=== PATIENT | female | born 1955 | race Two or more races ===

== ENCOUNTER → 2016-07-14 | Outpatient (CLI) | payer MEDICAID, OTHER | END | disposition home or self-care (01) | LOC: EDBD 13:05 → Rad HDHVI 13:05 | PROVIDERS: ATTEND Internal Medicine Cardiovascular Disease | DX: I51.7 Cardiomegaly (principal) | CPT/HCPCS: 93306 ==

== ENCOUNTER 2016-10-04 14:51 | Emergency (ER) | payer MEDICAID ==
[~2016-10-04] VITALS: Ht 157.5 cm; Wt 81.6 kg
[2016-10-04 15:34] VITALS: BP 156/70
[2016-10-04] MEDS ORDERED: METHOCARBAMOL 500 MG TAB PO ONE (16:00)
[2016-10-04] MEDS ORDERED: KETOROLAC TROMETH 60MG/2ML VIAL IM ONE (16:00)
== END 2016-10-04 16:28 | disposition home or self-care (01) ==
LOC: EDBD 14:51 → ER 14:53
DX: S20.221A Contusion of right back wall of thorax, initial encounter (principal); S70.01XA Contusion of right hip, initial encounter; G89.4 Chronic pain syndrome; M25.571 Pain in right ankle and joints of right foot; W01.0XXA Fall on same level from slipping, tripping and stumbling without subsequent striking against object, initial encounter; Y93.89 Activity, other specified; Y99.8 Other external cause status; Y92.89 Other specified places as the place of occurrence of the external cause
CPT/HCPCS: 73610; 96372; 99284; J1885